=== PATIENT | male | born 1985 | race Caucasian/White ===

== ENCOUNTER 2020-03-03 08:40 | Emergency (ER) | payer OTHER, SELFPAY ==
[2020-03-03 08:49] VITALS: BP 129/78; PULSE 85; RESP 20; TEMP 37.5; O2SAT 99
--- NOTE | 2020-03-03 09:06 | ED.SKABFB ---
HPI - Skin/Abscess/Foreign Bdy General Chief complaint: Skin/Abscess/Foreign Body Stated complaint: painful rash Time Seen by Provider: 03/03/20 09:00 Source: patient Mode of arrival: ambulatory Limitations: no limitations History of Present Illness HPI narrative: Garrick Sharma is a 34 yo male with no PMH who comes to express care with no rash on legs and lower arms. Rash on inner left thigh is particularly inflamed and coalesced. Complaining of pain on the left upper thigh where the rash is been scratched and is tender as well as pruritic. states he was cutting down weeds about 2 weeks ago and is cut grass since then but is unaware of where he may have contracted the rash from Related Data Allergies Allergy/AdvReac Type Severity Reaction Status Date / Time No Known Allergies Allergy Verified 03/03/20 09:03 Review of Systems Review of Systems: Narrative: CONSTITUTIONAL: Denies fever, chills, sweats. EYES: Denies visual changes, redness, discharge. ENT: Denies rhinorrhea, congestion, sore throat, otalgia. CARDIOVASCULAR: Denies chest pain, palpitations, edema. RESPIRATORY: Denies dyspnea, wheezing, cough GASTROINTESTINAL: Denies abdominal pain, nausea, vomiting, diarrhea. GENITOURINARY: Denies dysuria, hematuria, abnormal discharge SKIN: Has red rash, scaling vesicular, legs and arms NEUROLOGIC: Denies numbness, or focal weakness. PSYCHIATRIC: Denies anxiety or depression. PMFSH Family History Family History Other Hypertension Social History Social History (Updated 03/03/20 @ 09:08 by Diamond Moreno CNP) Smoking status: Current every day smoker Alcohol intake: current Comments At time of signature, I agree with nursing past medical, surgical, social and family history. There is no relevant family history pertinent to the presenting complaint. Exam Narrative: Exam Narrative: GENERAL: This is a well-nourished, well-developed patient, in mild distress. HEAD: normocephalic, atraumatic. EYES: Sclera clear/white. Vision is grossly intact. EARS: External ears normal, Hearing grossly intact. NOSE: External nose normal without nasal discharge, nares without redness, no rhinorrhea. THROAT: Mucous membranes moist, NECK: Neck supple, CARDIOVASCULAR: Regular rate and rhythm without murmurs, gallops, or rubs. RESPIRATORY: Clear to auscultation. Breath sounds equal bilaterally. No wheezes, rales, or rhonchi. GASTROINTESTINAL: Abdomen soft, SKIN: warm, intact with no suspicious lesions, good texture and turgor. Coalesced rash on left upper thigh that is scaly and vesicular, small dots on left lower leg right lower leg left forearm right forearm, some papular some flat NEURO: awake, alert, and oriented to person, place and time. There were no obvious focal neurologic abnormalities. Steady gait EXTREMITIES: Normal range of motion. BACK: Nontender without deformity Course Course Emergency Course: Patient started on Medrol Dosepak and Keflex Discussed plan and washing all tools clothes and shoes that have been used for cutting grasses Use of hydrocortisone cream and calamine or Benadryl lotion to areas as well as oral medication Follow-up with PCP Vital Signs Vital signs: Vital Signs Temperature 99.5 F 03/03/20 08:49 Pulse Rate 85 03/03/20 08:49 Respiratory Rate 20 03/03/20 08:49 Blood Pressure 129/78 03/03/20 08:49 Pulse Oximetry 99 03/03/20 08:49 Temperature 99.5 F 03/03/20 08:49 Pulse Rate 85 03/03/20 08:49 Respiratory Rate 20 03/03/20 08:49 Blood Pressure 129/78 03/03/20 08:49 Pulse Oximetry 99 03/03/20 08:49 MDM - Skin/Abscess/Foreign Bdy Differential Diagnosis Differential diagnosis: Likely abscess of skin or subcutaneous tissue, viral exanthem, urticaria, cellulitis, insect bites, contact dermatitis and other Discharge Plan Discharge Clinical Impression: Contact dermatitis Qualifiers: Contact de
== END 2020-03-03 09:20 | disposition home or self-care (01) ==
PROVIDERS: Emergency Provider Nurse Practitioner
DX: L23.7 Allergic contact dermatitis due to plants, except food (principal); F17.200 Nicotine dependence, unspecified, uncomplicated
CPT/HCPCS: 99213; G0463

== ENCOUNTER 2021-09-14 18:26 | Emergency (ER) | payer OTHER, SELFPAY ==
[2021-09-14 18:40] VITALS: BP 116/66; PULSE 63; RESP 20; TEMP 37.2; O2SAT 98
--- NOTE | 2021-09-14 19:07 | ED.NAVMDI ---
HPI - Nausea/Vomiting/Diarrhea General Chief complaint: Nausea/Vomiting/Diarrhea Stated complaint: nausea diarrhea headache Time Seen by Provider: 09/14/21 19:07 Source: patient History of Present Illness HPI Narrative: Patient presents with a 2-day history of nausea and diarrhea abdominal cramping headache and slight fever. Patient is requesting a work note states he missed work last night due to the nausea and diarrhea and does not feel as if he is able to go to work today. Patient states the whole family has had the same symptoms but he is the only one that has lingered past 24 hours. Patient reports he is taking Pepto-Bismol for the diarrhea and is taking fluids well. Related Data Home Medications Medication Instructions Recorded Confirmed atorvastatin [Lipitor] 40 mg PO DAILY 09/14/21 09/14/21 Allergies Allergy/AdvReac Type Severity Reaction Status Date / Time No Known Allergies Allergy Verified 09/14/21 19:02 Review of Systems Review of Systems: CONSTITUTIONAL: Denies chills, or sweats. Reports fever and generalized body aches EYES: Denies visual changes, redness, or discharge. ENT: Denies otalgia. Reports nasal congestion runny nose and sore throat CARDIOVASCULAR: Denies chest pain, palpitations, or edema. RESPIRATORY: Denies dyspnea. Reports occasional cough GASTROINTESTINAL: Denies abdominal pain, nausea, vomiting, or diarrhea. GENITOURINARY: Denies dysuria or hematuria. SKIN: Denies rash or itching. MUSCULOSKELETAL: Denies back pain, joint pain, or myalgia. Reports generalized body aches NEUROLOGIC: Denies headache, numbness, or weakness. PSYCHIATRIC: Denies anxiety or depression. PMFSH Family History Family History Other Hypertension Social History Social History (Updated 03/03/20 @ 09:08 by Diamond Moreno CNP) Smoking status: Current every day smoker Alcohol intake: current Comments At time of signature, agree with nursing past medical, surgical, social and family history. There is no relevant family history pertinent to the presenting complaint Exam Narrative: The patient is a well-developed, well-nourished in no acute distress. SKIN: Skin is warm and dry without erythema, swelling or exudate. There is good turgor. No tenting. HEAD: Atraumatic. Normocephalic. No temporal or scalp tenderness. EYES: Moist and bright. Sclera and conjunctivae normal. No discharge. PERRLA. Extraocular motions intact. Gross visual acuity intact. EARS: Pinna is normal shape and contour. Clear external auditory canals. TM pearly louis with good cone of light, no erythema or suppuration. Bilateral cerumen noted no gross hearing deficit. NOSE: pink, moist mucosa with good air movement. Clear rhinorrhea without nasal flaring. Septum midline. Mouth: moist mucous membranes. THROAT; mild erythema noted to posterior oropharynx with moderate postnasal drainage. Without exudate or ulceration.. Uvula midline. Normal movement of soft palate. NECK: Supple and nontender with full range of motion without discomfort. No meningeal signs. LUNGS: Equal and bilateral breath sounds without wheezes, rales or rhonchi. CHEST: The chest wall is without retractions or use of accessory muscles. HEART: Has a regular rate and rhythm without murmur, gallops, click or rub. ABDOMEN: Soft, nontender with positive active bowel sounds. No rebound tenderness. EXTREMITIES: Without cyanosis, clubbing or edema. Equal 2+ distal pulses and 2 second capillary refill noted. NEUROLOGIC: alert, active, . The patient moves all extremities with normal muscle strength. Normal muscle tone is noted. Normal coordination is noted. NO focal neurological findings noted. Course Course Level of Care: Express Care Visit Vital Signs Vital signs: Vital Signs Temperature 37.2 C 09/14/21 18:40 Pulse Rate 63 09/14/21 18:40 Respiratory Rate 20 09/14/21 18:40 Blood Pressure 116/66 09/14/21 18:40 Pulse O
== END 2021-09-14 19:29 | disposition home or self-care (01) ==
PROVIDERS: Emergency Provider Nurse Practitioner Family
DX: R11.0 Nausea (principal); R19.7 Diarrhea, unspecified; Z20.822 Contact with and (suspected) exposure to COVID-19; F17.200 Nicotine dependence, unspecified, uncomplicated
CPT/HCPCS: 87426; 99213; C9803; G0463